=== PATIENT | male | born 1985 | race Two or more races ===

== ENCOUNTER 2023-04-10 21:10 | Emergency (ER) | payer SELFPAY ==
[~2023-04-10] VITALS: Ht 177.8 cm; Wt 150.0 kg
[2023-04-10 21:11] VITALS: PULSE 0; RESP 0; O2SAT 0
[2023-04-10 21:35] VITALS: BP 0/0; PULSE 0; RESP 0; O2SAT 0
== END 2023-04-11 01:25 ==
LOC: EDBD 21:10 → ER 21:10
DX: I46.9 Cardiac arrest, cause unspecified (principal)
CPT/HCPCS: 31500; 36680; 92950